=== PATIENT | female | born 1965 | race Caucasian/White ===

== ENCOUNTER 2018-08-23 03:12 | Inpatient (IN) | payer MEDICAID ==
[2018-08-23] VITALS (7 sets, daily range): BP systolic 106–118; BP diastolic 55–96
[~2018-08-23] VITALS: Ht 167.6 cm; Wt 75.3 kg
[2018-08-23] MEDS ORDERED: LORazepam 2 MG/ML VIAL IM ONE (03:45)
[2018-08-23] MEDS ORDERED: DiphenhydrAMINE HCL 50 MG/ML VIAL IM ONE (03:45)
[2018-08-23] MEDS ORDERED: HALOPERIDOL LACTATE 5 MG/ML VIAL IM ONE (03:45)
[2018-08-23 04:47] LABS: EOSINOPHILS % (AUTO) 2.2 % (1.0-6.0); HEMATOCRIT 40.1 % (36-46); HEMOGLOBIN 13.8 g/dL (12.0-16.0); LYMPHOCYTES # (AUTO) 1.5 K/uL (1.0-4.8); MEAN CORPUSCULAR HEMOGLOBIN 32.9 pg (26.0-34.0); MEAN CORPUSCULAR HGB CONC 34.3 G/dL (31.0-37.0); MEAN CORPUSCULAR VOLUME 96 fL (80-100); MONOCYTES # (AUTO) 0.4 K/uL (0.1-1.0); MONOCYTES % (AUTO) 9.1 % (2.0-9.0); NEUTROPHILS # (AUTO) 2.6 K/uL (1.8-7.7); NEUTROPHILS % (AUTO) 55.7 % (40.0-70.0); PLATELET COUNT (AUTO) 270 K/uL (150-450); RED BLOOD CELL COUNT(AUTO) 4.18 MIL/uL (4.00-5.20)
[2018-08-23 04:50] LABS: ANION GAP 7 mmol/L (8-16); CARBON DIOXIDE 29 mmol/L (22-29); CHLORIDE 113 mmol/L (98-107); CREATININE 0.61 mg/dL (0.60-1.30); GLOMERULAR FILTR. RATE CALC > 60 mL/min (>60); GLUCOSE,RANDOM 86 mg/dL (70-110); POTASSIUM 3.8 mmol/L (3.5-5.1); SODIUM SERUM 149 mmol/L (136-145); UREA NITROGEN, BLOOD 11 mg/dL (7-18)
[2018-08-23 04:55] LABS: ALANINE AMINOTRANSFERASE 28 U/L (12-78); ALBUMIN 3.6 g/dL (3.4-5.0); ALKALINE PHOSPHATASE 54 U/L (46-116); ASPARTATE AMINOTRANSFERASE 31 U/L (15-37); BILIRUBIN,TOTAL 0.5 mg/dL (0.1-1.0); TOTAL PROTEIN, SERUM 6.6 g/dL (6.4-8.2)
[2018-08-23] MEDS ORDERED: PETROLATUM,WHITE 71 GM JELLY TP PRN (07:15)
[2018-08-23] MEDS ORDERED: ALBUTEROL SULFATE HFA 90 MCG/PUFF 8 GM INHALER IH PRN (07:15)
[2018-08-23] MEDS ORDERED: LOPERAMIDE HCL 2 MG CAPSULE PO PRN (07:15)
[2018-08-23] MEDS ORDERED: GuaiFENesin/D-METHORPHAN [SUGAR-FREE] 200-20MG/10 ML SYRUP UDCUP PO PRN (07:15)
[2018-08-23] MEDS ORDERED: ONDANSETRON HCL 4 MG TABLET PO PRN (07:15)
[2018-08-23] MEDS ORDERED: NICOTINE 14 MG/24 HOUR PATCH TD PRN (07:15)
[2018-08-23] MEDS ORDERED: MAGNESIUM HYDROXIDE SUSPENSION 30 ML UDCUP PO PRN (07:15)
[2018-08-23] MEDS ORDERED: MAG HYDROX/AL HYDROX/SIMETH ES 30 ML SUSPENSION UDCUP PO PRN (07:15)
[2018-08-23] MEDS ORDERED: ACETAMINOPHEN 325 MG TABLET PO PRN (07:15)
[2018-08-23] MEDS ORDERED: DOCUSATE SODIUM 100 MG CAPSULE PO PRN (07:15)
[2018-08-23] MEDS ORDERED: CloNIDine HCL 0.1 MG TABLET PO PRN (07:15)
[2018-08-23] MEDS: RisperiDONE 2 MG TABLET PO SCH ×3 (10:15→15:45)
[2018-08-24 05:59] VITALS: BP 138/86
[2018-08-24] MEDS: RisperiDONE 2 MG TABLET PO SCH (08:04)
[2018-08-24 08:17] VITALS: BP 127/74
[2018-08-24 08:31] LABS: BASOPHILS % (AUTO) 0.6 % (0.0-2.0); EOSINOPHILS % (AUTO) 1.9 % (1.0-6.0); HEMATOCRIT 43.2 % (36-46); HEMOGLOBIN 14.9 g/dL (12.0-16.0); LYMPHOCYTES # (AUTO) 1.4 K/uL (1.0-4.8); LYMPHOCYTES % (AUTO) 18.1 % (22.0-44.0); MEAN CORPUSCULAR HEMOGLOBIN 33.1 pg (26.0-34.0); MEAN CORPUSCULAR HGB CONC 34.5 G/dL (31.0-37.0); MEAN CORPUSCULAR VOLUME 96 fL (80-100); MONOCYTES # (AUTO) 0.6 K/uL (0.1-1.0); MONOCYTES % (AUTO) 7.8 % (2.0-9.0); NEUTROPHILS # (AUTO) 5.5 K/uL (1.8-7.7); NEUTROPHILS % (AUTO) 71.6 % (40.0-70.0); PLATELET COUNT (AUTO) 279 K/uL (150-450); RED BLOOD CELL COUNT(AUTO) 4.51 MIL/uL (4.00-5.20); RED CELL DISTRIBUTION WIDTH 13.2 % (11.5-14.5)
[2018-08-24 08:42] LABS: HEMOGLOBIN A1C 5.9 % (4.5-6.2)
[2018-08-24 09:49] LABS: ALANINE AMINOTRANSFERASE 31 U/L (12-78); ALBUMIN 3.7 g/dL (3.4-5.0); ALKALINE PHOSPHATASE 61 U/L (46-116); ANION GAP 6 mmol/L (8-16); ASPARTATE AMINOTRANSFERASE 32 U/L (15-37); BILIRUBIN,TOTAL 0.6 mg/dL (0.1-1.0); CALCIUM, TOTAL 8.9 mg/dL (8.8-10.5); CARBON DIOXIDE 30 mmol/L (22-29); CHLORIDE 108 mmol/L (98-107); CHOL/HDL RATIO 1.8 (3.9-5.7); CHOLESTEROL 165 mg/dL (131-200); CREATININE 0.79 mg/dL (0.60-1.30); FREE T4 (FREE THYROXINE) 0.54 ng/dL (0.76-1.46); GLOMERULAR FILTR. RATE CALC > 60 mL/min (>60); GLUCOSE,RANDOM 124 mg/dL (70-110); HDL CHOLESTEROL 94 mg/dL (40-60); LDL CHOL (CALC.) 53 mg/dL (0-130); POTASSIUM 4.2 mmol/L (3.5-5.1); SODIUM SERUM 144 mmol/L (136-145); THYROID STIMULATING HORMONE 32.48 uIU/mL (0.36-3.74); TRIGLYCERIDES 89 mg/dL (15-150); UREA NITROGEN, BLOOD 14 mg/dL (7-18)
[2018-08-24] MEDS: BuPROPion HCL XL 150 MG ER TABLET PO SCH (13:18)
[2018-08-24] MEDS: LORazepam 2 MG TABLET PO PRN (13:18)
[2018-08-24] MEDS ORDERED: SODIUM POLYSTYRENE SULFONATE 15 GM/60 ML SUSPENSION BOTTLE PO ONE (13:30)
[2018-08-24] MEDS ORDERED: LEVOTHYROXINE SODIUM 75 MCG TABLET PO SCH (13:45)
[2018-08-24] MEDS: QUEtiapine FUMARATE 100 MG TABLET PO SCH (20:31)
[2018-08-25 04:24] VITALS: BP 132/92
[2018-08-25] MEDS: IBUPROFEN 400 MG TABLET PO PRN (04:28)
[2018-08-25] MEDS: LORazepam 2 MG TABLET PO PRN ×3 (04:28→17:00)
[2018-08-25 08:17] VITALS: BP 136/77
[2018-08-25] MEDS: BuPROPion HCL XL 150 MG ER TABLET PO SCH (08:33)
[2018-08-25 16:09] VITALS: BP 146/100
[2018-08-25] MEDS: HALOPERIDOL 5 MG TABLET PO PRN (17:00)
[2018-08-25 17:55] VITALS: BP 138/90
[2018-08-25] MEDS: ZOLPIDEM TARTRATE 10 MG TABLET PO PRN (21:04)
[2018-08-25] MEDS: QUEtiapine FUMARATE 100 MG TABLET PO SCH (21:04)
[2018-08-26 06:22] VITALS: BP 136/91
[2018-08-26] MEDS: LEVOTHYROXINE SODIUM 100 MCG TABLET PO SCH (06:26)
[2018-08-26 08:14] VITALS: BP 122/68
[2018-08-26] MEDS: BuPROPion HCL XL 150 MG ER TABLET PO SCH (09:06)
[2018-08-26] MEDS: LORazepam 2 MG TABLET PO PRN ×2 (12:08→16:47)
[2018-08-26] MEDS: IBUPROFEN 400 MG TABLET PO PRN (14:40)
[2018-08-26 14:41] VITALS: BP 126/94
[2018-08-26] MEDS: HALOPERIDOL 5 MG TABLET PO PRN (16:47)
[2018-08-26 18:00] VITALS: BP 139/74
[2018-08-26] MEDS: ZOLPIDEM TARTRATE 10 MG TABLET PO PRN (21:42)
[2018-08-26] MEDS: QUEtiapine FUMARATE 100 MG TABLET PO SCH (21:42)
[2018-08-27 06:30] VITALS: BP 115/73
[2018-08-27] MEDS: LEVOTHYROXINE SODIUM 100 MCG TABLET PO SCH (06:30)
[2018-08-27] MEDS: IBUPROFEN 400 MG TABLET PO PRN (06:30)
[2018-08-27 08:21] VITALS: BP 110/83
[2018-08-27] MEDS: LORazepam 2 MG TABLET PO PRN (09:00)
[2018-08-27] MEDS: HALOPERIDOL 5 MG TABLET PO PRN (09:00)
[2018-08-27] MEDS: BuPROPion HCL XL 150 MG ER TABLET PO SCH (09:01)
[2018-08-27 18:05] VITALS: BP 116/73
[2018-08-27] MEDS: QUEtiapine FUMARATE 100 MG TABLET PO SCH (21:35)
[2018-08-27] MEDS: ZOLPIDEM TARTRATE 10 MG TABLET PO PRN (21:45)
[2018-08-28 02:40] VITALS: BP 121/76
[2018-08-28] MEDS: IBUPROFEN 400 MG TABLET PO PRN ×2 (02:40→16:26)
[2018-08-28] MEDS: LORazepam 2 MG TABLET PO PRN ×3 (04:39→23:33)
[2018-08-28] MEDS: LEVOTHYROXINE SODIUM 100 MCG TABLET PO SCH (06:34)
[2018-08-28 08:22] VITALS: BP 121/77
[2018-08-28] MEDS: BuPROPion HCL XL 150 MG ER TABLET PO SCH (08:32)
[2018-08-28 16:10] VITALS: BP 125/86
[2018-08-28] MEDS: ZOLPIDEM TARTRATE 10 MG TABLET PO PRN (20:24)
[2018-08-28] MEDS: QUEtiapine FUMARATE 100 MG TABLET PO SCH (20:24)
[2018-08-28 23:33] VITALS: BP 117/86
[2018-08-29] MEDS: LORazepam 2 MG TABLET PO PRN (04:53)
[2018-08-29] MEDS: LEVOTHYROXINE SODIUM 100 MCG TABLET PO SCH (06:30)
[2018-08-29 09:35] VITALS: BP 130/89
[2018-08-29] MEDS ORDERED: BUPR-93 PO (09:52)
[2018-08-29] MEDS ORDERED: LEVO125T95 PO (09:52)
[2018-08-29] MEDS ORDERED: QUET100T PO (09:52)
[2018-08-29] MEDS: BuPROPion HCL XL 150 MG ER TABLET PO SCH (10:39)
== END 2018-08-29 13:10 | disposition home or self-care (01) | DRG 750 ==
LOC: EMS 03:12 → B3A 04:37 → B2S 08-28 22:08
PROVIDERS: ADMIT Psychiatry & Neurology Child & Adolescent Psychiatry; ATTEND Psychiatry & Neurology Child & Adolescent Psychiatry
DX: F25.1 Schizoaffective disorder, depressive type (principal); E87.0 Hyperosmolality and hypernatremia; R45.851 Suicidal ideations; Z28.21 Immunization not carried out because of patient refusal; F10.10 Alcohol abuse, uncomplicated; F41.9 Anxiety disorder, unspecified; Z79.899 Other long term (current) drug therapy; Z91.19 Patient's noncompliance with other medical treatment and regimen; Y90.8 Blood alcohol level of 240 mg/100 ml or more; Z71.41 Alcohol abuse counseling and surveillance of alcoholic
CPT/HCPCS: 83036; 84439; 84443; 96372; G0480; J1200; J1630; J2060